=== PATIENT | male | born 1945 | race Caucasian/White ===

== ENCOUNTER 2016-10-15 15:40 | Observation (INO) ==
[2016-10-15] MEDS ORDERED: TYLENOL PO ONE (17:48)
[2016-10-15] MEDS ORDERED: MORPHINE IV ONE ×2 (17:49→19:10)
[2016-10-15] MEDS ORDERED: CATAPRES PO ONE (17:49)
[2016-10-15 17:51] LABS: MANUAL DIFF NEEDED? NO
[2016-10-15 17:54] LABS: URINE MICRO REVIEW NEEDED? NO; URINE SOURCE CLEAN CATCH
[2016-10-15 17:57] LABS: BASO% 0.9 % (0.0-0.8); EOS# 0.28 X1000 (0.0-0.7); EOS% 3.6 % (0.0-10.0); HEMATOCRIT 42.6 % (42.0-52.0); HEMOGLOBIN 14.5 g/dL (14.0-18.0); LYMPH# 1.13 X1000 (1.2-3.4); LYMPH% 14.4 % (20.5-51.1); MCH 29.1 PG (27-31); MCV 85.5 FL (81-99); MONO# 0.65 X1000 (0.11-0.59); MONO% 8.3 % (1.7-9.3); MPV 12.3 FL (7.4-10.4); NEUT% 72.8 % (42.2-75.2); PLT 309 X1000 (130-400); RBC 4.98 XMIL (4.7-6.1)
[2016-10-15 18:08] LABS: BILIRUBIN URINE NEGATIVE (NEGATIVE); BLOOD URINE NEGATIVE (NEGATIVE); COLOR YELLOW; GLUCOSE URINE NEGATIVE (NEGATIVE); LEUKOCYTES URINE NEGATIVE (NEGATIVE); NITRITE URINE NEGATIVE (NEGATIVE); PH URINE 6.5; PROTEIN URINE 100 mg/dL (NEGATIVE); SP GRAVITY URINE 1.008; TURBIDITY URINE CLEAR (CLEAR); UROBILINOGEN URINE NORMAL (NORMAL)
[2016-10-15 18:09] LABS: UR EPITHELIAL CELLS <10 /HPF (<10); URINE BACTERIA NEGATIVE /HPF; URINE RBC <10 /HPF (<10); URINE WBC <10 /HPF (<10)
[2016-10-15 18:15] LABS: INR 1.08
[2016-10-15 18:16] LABS: ALBUMIN 3.7 g/dL (3.5-5.0); CALCIUM 8.4 mg/dL (8.8-10.2); POTASSIUM 3.8 mmol/L (3.5-5.1); TOTAL BILIRUBIN 0.32 mg/dL (0.20-1.00); TOTAL PROTEIN 6.2 g/dL (6.3-8.3)
--- NOTE | 2016-10-15 18:53 | PROVIDER DOCUMENTATION ---
HPI-Headache - General Chief Complaint: Chest Pain Stated Complaint: CP,MARTIN,HIGH B/P Time Seen by Provider: 10/15/16 17:33 Source: patient Allergies/Adverse Reactions: Patient Allergies Allergy/AdvReac Type Severity Reaction Status Date / Time metformin Allergy swelling Verified 10/15/16 15:58 of tongue Home Medications: Home Medication List Medication Instructions Recorded Confirmed Last Taken Type Aspirin [Aspir 81] 81 mg PO DAILY 04/13/12 10/15/16 10/14/16 21:30 History Diltiazem C.d. [Cardizem C.d] 120 mg PO DAILY 02/15/16 10/15/16 10/15/16 09:00 History Anagrelide [Agrylin] 0.5 mg PO BID 10/15/16 10/15/16 10/15/16 09:00 History Rivaroxaban [Xarelto] 20 mg PO QHS 10/15/16 10/15/16 10/14/16 21:30 History SIMVAstatin [Zocor] 20 mg PO QHS 10/15/16 10/15/16 10/14/16 21:30 History - History of Present Illness-Headache Nature of Presenting Problem: 71 yo complains of 3 days of MARTIN - worse today . Has chronic vision changes, no acute change. Notes that BP has been increased last 2 days- 200 /110. Complains of intermittent very mild CP - none currently. no fever/chills, no n/ v. Headache Location: reports: frontal, occipital Quality of Pain: reports: dull Severity: reports: severe Onset/Duration: reports: 3 days ago Timing: reports: still present Headache Context: reports: other (increases with standing) Headache History: reports: other (hx mild occasional MARTIN) Any recent trauma/injury?: reports: none Headache severity at the maximum: severe Preceding Symptoms: denies: visual disturbances Headache Exacerbated by:: reports: movement Review of Systems - Adult - REVIEW OF SYSTEMS - ADULT Constitutional: reports: no symptoms reported Eyes: reports: other ( chronic mild blurry vision- 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 - sx are improving) Ears, Nose, Mouth & Throat: reports: no symptoms reported Cardiovascular: reports: see HPI, chest pain Respiratory: reports: shortness of breath (mild) Gastrointestinal: reports: no symptoms reported Genitourinary: reports: no symptoms reported Musculoskeletal: reports: no symptoms reported Integumentary: reports: no symptoms reported Neurological: reports: see HPI Past History - Adult - PAST MEDICAL HISTORY-ADULT Review of Records: reports: Nursing Assessment Review, Medications Reviewed Major Childhood Illnesses: reports: history unknown Cardiovascular: reports: aortic disease (abdominal aortic occlusion, with stent ), HTN, PVD Respiratory: reports: denies history Gastrointestinal: reports: denies history Endocrine/Immune: reports: other (elevated platelets) Physical Exam- Neurological - Physical Exam-Neuro Initial Vital Signs Reviewed: Yes General Appearance: appears well, alert, no apparent distress Eye Exam: bilateral eye: normal inspection, PERRL, EOMI HENMT: normocephalic/atraumatic, normal ENT inspection, TMs normal Head Injury: no evidence of injury Neck: non-tender, full range of motion, supple Respiratory: chest non-tender, lungs clear, normal breath sounds Cardiovascular: regular rate, rhythm, no edema, no gallop, no JVD, no murmur Abdominal Exam: normal bowel sounds, non tender, soft, no organomegaly Lymphatic: no adenopathy Extremity: normal range of motion, non-tender, normal inspection, no pedal edema director medical Exam: normal hearing, normal speech, PERRL Motor/Sensory: no motor deficit, no sensory deficit Neurologic: grossly normal, no motor/sensory deficits Progress - PLAN OF CARE/RESULTS Progress/Plan/Lab Results: Laboratory Tests 10/15/16 10/15/16 10/15/16 16:20 16:20 16:20 WBC 7.85 RBC 4.98 Hgb 14.5 Hct 42.6 MCV 85.5 MCH 29.1 MCHC 34.0 RDW Std Deviation 14.2 Plt Count 309 MPV 12.3 H Immature Gran % (Auto) 0.0 Neut % (Auto) 72.8 Lymph % (Auto) 14.4 L Garza % (Auto) 8.3 Eos % (Auto) 3.6 Baso % (Auto) 0.9 H Immature Gran # (Auto) 0.00 Neut # (Auto) 5.72 Lymph # (Auto) 1.13 L Garza # (Auto) 0.65 H Eos # (Auto) 0.28 Baso # (Auto) 0.07 PT INR PTT (Actin FS) Sodium 133 L Potassium 3.8 Chloride 98 Carbon Dioxide 23 L Anion Gap 12 BUN 18 Creatinine 1.2 Estimated GFR/1.73 m2 60 BUN/Creatinine Ratio 15 Glucose 151 H Calculated Osmolality 271 Calcium 8.4 L Total Bilirubin 0.32 AST 13 ALT 10 Alkaline Phosphatase 66 Troponin T [id number]-F-Nutckxwsljz Pept 1326 H Total Protein 6.2 L Albumin 3.7 Globulin 2.5 Albumin/Globulin Ratio 1.5 Urine Source Urine Color Urine Turbidity Urine pH Ur Specific Boron Urine Protein Ur Glucose (Stick) Ur Ketones (Stick) Urine Blood Urine Nitrite Urine Bilirubin Urobilinogen Dipstick Urine Leukocytes Urine WBC (Auto) Urine RBC (Auto) U Epithel Cells (Auto) Urine Bacteria (Auto) 10/15/16 10/15/16 10/15/16 16:20 16:20 17:50 WBC RBC Hgb Hct MCV MCH MCHC RDW Std Deviation Plt Count MPV Immature Gran % (Auto) Neut % (Auto) Lymph % (Auto) Garza % (Auto) Eos % (Auto) Baso % (Auto) Immature Gran # (Auto) Neut # (Auto) Lymph # (Auto) Garza # (Auto) Eos # (Auto) Baso # (Auto) PT 11.0 INR 1.08 PTT (Actin FS) 29.0 Sodium Potassium Chloride Carbon Dioxide Anion Gap BUN Creatinine Estimated GFR/1.73 m2 BUN/Creatinine Ratio Glucose Calculated Osmolality Calcium Total Bilirubin AST ALT Alkaline Phosphatase Troponin T < 0.010 Mlg-X-Hzhtxsaneey Pept Total Protein Albumin Globulin Albumin/Globulin Ratio Urine Source CLEAN CATCH Urine Color YELLOW Urine Turbidity CLEAR Urine pH 6.5 Ur Specific Boron 1.008 Urine Protein 100 A Ur Glucose (Stick) NEGATIVE Ur Ketones (Stick) NEGATIVE Urine Blood NEGATIVE Urine Nitrite NEGATIVE Urine Bilirubin NEGATIVE Urobilinogen Dipstick NORMAL Urine Leukocytes NEGATIVE Urine WBC (Auto) <10 Urine RBC (Auto) <10 U Epithel Cells (Auto) <10 Urine Bacteria (Auto) NEGATIVE Orders Category Date Time Status Cardiac Monitoring DIRECTED Care 10/15/16 17:44 Active Saline Loc NOW Care 10/15/16 17:44 Active CHEST-1 VIEW [RAD] Stat Exams 10/15/16 17:45 Taken HEAD W/O CONTRAST [CT] Stat Exams 10/15/16 17:45 Taken CBC WITH ELECTRONIC DIFF [HEME] Stat Lab 10/15/16 16:20 Completed COMPREHENSIVE METABOLIC PANEL [CHEM] Stat Lab 10/15/16 16:20 Completed PRO B-NATRIURETIC PEPTIDE Stat Lab 10/15/16 16:20 Completed PROTIME WITH INR [COAG] Stat Lab 10/15/16 16:20 Completed PTT [COAG] Stat Lab 10/15/16 16:20 Completed TROPONIN T Stat Lab 10/15/16 16:20 Completed URINALYSIS [URINALYSIS] Stat Lab 10/15/16 17:50 Completed Acetaminophen [Tylenol] Med 10/15/16 17:48 Discontinued 1,000 mg PO NOW ONE Clonidine [Catapres] Med 10/15/16 17:49 Discontinued 0.1 mg PO NOW ONE Morphine Med 10/15/16 17:49 Discontinued 4 mg IV NOW ONE EKG [EKG] Stat Ther 10/15/16 15:47 Ordered Vital Signs Temp Pulse Resp BP Pulse Ox 10/15/16 18:52 70 19 192/108 95 10/15/16 15:43 97.4 F L 78 18 174/111 98 metformin Allergy (Verified 10/15/16 15:58) swelling of tongue Aspirin [Aspir 81] 81 mg PO DAILY 04/13/12 Diltiazem C.d. [Cardizem C.d] 120 mg PO DAILY 02/15/16 Anagrelide [Agrylin] 0.5 mg PO BID 10/15/16 Rivaroxaban [Xarelto] 20 mg PO QHS 10/15/16 SIMVAstatin [Zocor] 20 mg PO QHS 10/15/16 I&O 10/14/16 10/15/16 10/16/16 06:59 06:59 06:59 Output Total 60 Balance -60 Laboratory 10/15/16 10/15/16 10/15/16 17:50 16:20 16:20 WBC RBC Hgb Hct MCV MCH MCHC RDW Std Deviation Plt Count MPV Immature Gran % (Auto) Neut % (Auto) Lymph % (Auto) Garza % (Auto) Eos % (Auto) Baso % (Auto) Immature Gran # (Auto) Neut # (Auto) Lymph # (Auto) Garza # (Auto) Eos # (Auto) Baso # (Auto) PT 11.0 INR 1.08 PTT (Actin FS) 29.0 Sodium Potassium Chloride Carbon Dioxide Anion Gap BUN Creatinine Estimated GFR/1.73 m2 BUN/Creatinine Ratio Glucose Calculated Osmolality Calcium Total Bilirubin AST ALT Alkaline Phosphatase Troponin T < 0.010 Rpx-A-Yxcedddriba Pept Total Protein Albumin Globulin Albumin/Globulin Ratio Urine Source CLEAN CATCH Urine Color YELLOW Urine Turbidity CLEAR Urine pH 6.5 Ur Specific Boron 1.008 Urine Protein 100 A Ur Glucose (Stick) NEGATIVE Ur Ketones (Stick) NEGATIVE Urine Blood NEGATIVE Urine Nitrite NEGATIVE Urine Bilirubin NEGATIVE Urobilinogen Dipstick NORMAL Urine Leukocytes NEGATIVE Urine WBC (Auto) <10 Urine RBC (Auto) <10 U Epithel Cells (Auto) <10 Urine Bacteria (Auto) NEGATIVE 10/15/16 10/15/16 10/15/16 16:20 16:20 16:20 WBC 7.85 RBC 4.98 Hgb 14.5 Hct 42.6 MCV 85.5 MCH 29.1 MCHC 34.0 RDW Std Deviation 14.2 Plt Count 309 MPV 12.3 H Immature Gran % (Auto) 0.0 Neut % (Auto) 72.8 Lymph % (Auto) 14.4 L Garza % (Auto) 8.3 Eos % (Auto) 3.6 Baso % (Auto) 0.9 H Immature Gran # (Auto) 0.00 Neut # (Auto) 5.72 Lymph # (Auto) 1.13 L Garza # (Auto) 0.65 H Eos # (Auto) 0.28 Baso # (Auto) 0.07 PT INR PTT (Actin FS) Sodium 133 L Potassium 3.8 Chloride 98 Carbon Dioxide 23 L Anion Gap 12 BUN 18 Creatinine 1.2 Estimated GFR/1.73 m2 60 BUN/Creatinine Ratio 15 Glucose 151 H Calculated Osmolality 271 Calcium 8.4 L Total Bilirubin 0.32 AST 13 ALT 10 Alkaline Phosphatase 66 Troponin T Ikp-P-Snsrumonkja Pept 1326 H Total Protein 6.2 L Albumin 3.7 Globulin 2.5 Albumin/Globulin Ratio 1.5 Urine Source Urine Color Urine Turbidity Urine pH Ur Specific Boron Urine Protein Ur Glucose (Stick) Ur Ketones (Stick) Urine Blood Urine Nitrite Urine Bilirubin Urobilinogen Dipstick Urine Leukocytes Urine WBC (Auto) Urine RBC (Auto) U Epithel Cells (Auto) Urine Bacteria (Auto) - EKG 1 Time of EKG reading by physician:: 17:00 EKG Read and Signed by:: Deonna Loomis EKG Interpretation (*Must complete 3 of following elements*): Abnormal Rate: 83 Rhythm: sr with freq PVC AK Interval: normal ST Wave: non-specific ST changes (t wave inversion laterally, changed from 07/14 ) - XRAY 1 XRAY Study: Chest (no acute changes) - CT/MRI 1 CT Study: Head (ethmoid sinusitis, chronic changes) - CONSULTS/PCP/HOSPITALIST Notification #1 *Consult/PCP/Hospitalist*: Dr Bah Time Discussed: 19:28 (EKG changes- r/o VA, Severe MARTIN- possible htn encephalopathy) Consult Disposition: Will see in ED, Admit Departure - Departure Time of Disposition Order: 19:29 DIAGNOSIS: Unstable angina, Hypertensive encephalopathy Disposition: ADMITTED INPATIENT 09 Certified Medical Emergency: Emergent Condition: Fair Referrals: Gage Gustafson MD [Primary Care Provider] -
[2016-10-15] MEDS ORDERED: LABETALOL IV ONE (19:10)
[2016-10-15] MEDS ORDERED: ZOFRAN IV PRN (22:48)
[2016-10-15] MEDS ORDERED: TYLENOL PO PRN (22:48)
--- NOTE | 2016-10-16 05:03 | HISTORY AND PHYSICAL ---
COMPLAINT: Chest pain x2 days. HISTORY OF PRESENTING ILLNESS: A 71-year-old male with a history of CVA, hypertension, and diabetes mellitus type 2 who had presented to the emergency department with a 2 day history of having chest pain. He described it as pressure-like and states that he had some shortness of breath. He was evaluated in the ER and due to his presenting symptoms, it was thought that he would need hospitalization for further management. At the time of my examination, he had denied any headache, fever, chills, nausea, vomiting, diarrhea, hemoptysis, or weight changes but complained of chest pain. PAST MEDICAL HISTORY: Includes CVA, hypertension, diabetes mellitus type 2. PAST SURGICAL HISTORY: Aortic stent and cholecystectomy. ALLERGIES: To metformin. CURRENT MEDICATIONS: As listed in the MAR. SOCIAL HISTORY: He denies any history of smoking, alcohol, or illicit drug use. FAMILY HISTORY: No history of coronary artery disease. REVIEW OF SYSTEMS: Twelve point review of systems listed as in the HPI. Other systems negative. PHYSICAL EXAMINATION: GENERAL: Cooperative, friendly male. He is resting comfortably now. VITAL SIGNS: Temperature 97.4 degrees, pulse 78, respirations 18, blood pressure 174/111. HEENT: Atraumatic, normocephalic. Extraocular movements intact. PERRLA. NECK: Supple. CHEST: Clear to auscultation. CARDIOVASCULAR: Regular rate and rhythm. ABDOMEN: Soft. Positive bowel sounds. EXTREMITIES: No edema. NEUROLOGIC: He is awake, alert, oriented x3. : No bladder distention. SKIN: Warm. LABORATORIES AND STUDIES: Sodium 133, potassium 3.8, chloride 98, CO2 is 23, BUN is 18, creatinine is 1.2, glucose is 151. WBCs 7.85, hemoglobin 14.5, hematocrit 42.6, platelets are 309,000. ASSESSMENT: A 71-year-old male with a history of hypertension and diabetes mellitus type 2 who had presented to the emergency department with a 2 day history of having chest pain. We will place the patient for observation for further evaluation and management. 1. Chest pain. 2. Hypertension. 3. Diabetes mellitus type 2. PLAN: 1. Admit the patient to the medical floor with telemetry. 2. Continue with cardiac workup. Check EKGs, serial cardiac enzymes. Have patient continue on aspirin. We will use sublingual nitroglycerin and morphine p.r.n. chest pain. 3. We will monitor blood pressure closely. Resume antihypertensive agents. 4. We will put patient on a sliding scale insulin regimen. Monitor blood glucose closely. 5. We will put patient on DVT prophylaxis with SCDs. 6. We will continue to follow and reassess.
--- NOTE | 2016-10-16 05:28 | EKG Report ---
Test Performed on : 10/15/2016 7:36:20 PM Test Reason : ekg changes Blood Pressure : / mmHG Vent. Rate : 062 BPM Atrial Rate : 062 BPM P-R Int : 194 ms QRS Dur : 110 ms QT Int : 466 ms P-R-T Axes : 031 -31 132 degrees QTc Int : 472 ms Sinus rhythm. with occasional premature ventricular complexes. Possible Left atrial enlargement Left axis deviation T wave abnormality, consider lateral ischemia Prolonged QT Abnormal ECG When compared with ECG of 15-OCT-2016 15:49, (Unconfirmed) No significant change was found Unconfirmed Result
--- NOTE | 2016-10-16 05:36 | EKG Report ---
Test Performed on : 10/15/2016 3:49:56 PM Test Reason : CP Blood Pressure : / mmHG Vent. Rate : 083 BPM Atrial Rate : 083 BPM P-R Int : 170 ms QRS Dur : 110 ms QT Int : 410 ms P-R-T Axes : 031 -28 125 degrees QTc Int : 481 ms Sinus rhythm. with frequent and consecutive premature ventricular complexes. Possible Left atrial enlargement ST & T wave abnormality, consider lateral ischemia Prolonged QT Abnormal ECG When compared with ECG of 13-JUL-2016 10:52, Criteria for Septal infarct are no longer present Unconfirmed Result
[2016-10-16] MEDS: PRILOSEC PO SCH (06:13)
--- NOTE | 2016-10-16 07:02 | Diag Imaging Result Document ---
PROCEDURE NAME: CHEST-1 VIEW - 10/15/2016 PORTABLE CHEST: COMPARISON: Compared to 07/13/2016. FINDINGS: The lungs are well expanded. Heart is borderline mildly prominent. The vessels are not distended. No pneumonia. No pleural effusions identified. IMPRESSION: Borderline mildly prominent heart, otherwise negative exam.
[2016-10-16 07:18] LABS: MANUAL DIFF NEEDED? NO
--- NOTE | 2016-10-16 07:24 | Diag Imaging Result Document ---
PROCEDURE NAME: HEAD W/O CONTRAST - 10/15/2016 CT BRAIN WITHOUT: TECHNIQUE: Dose-reduction protocol. FINDINGS: No parenchymal hemorrhage. No epidural or subdural hematoma. No subarachnoid hemorrhage. There are chronic microvascular ischemic changes. I do not identify a mass on this noncontrasted exam. There is prominent mucus in the ethmoid sinuses. IMPRESSION: 1. No hemorrhage. 2. Chronic microvascular ischemic changes. 3. Ethmoid sinusitis, primarily on the left. A preliminary report was given at 6:54 p.m.
[2016-10-16 07:27] LABS: BASO% 0.9 % (0.0-0.8); EOS# 0.22 X1000 (0.0-0.7); EOS% 2.9 % (0.0-10.0); HEMOGLOBIN 14.2 g/dL (14.0-18.0); LYMPH# 1.17 X1000 (1.2-3.4); LYMPH% 15.5 % (20.5-51.1); MCH 28.4 PG (27-31); MONO# 0.51 X1000 (0.11-0.59); MONO% 6.8 % (1.7-9.3); MPV 12.3 FL (7.4-10.4); NEUT% 73.9 % (42.2-75.2); PLT 282 X1000 (130-400)
[2016-10-16 07:36] LABS: HDL 33 mg/dL (35-55); LDL 72 mg/dL; TRIGLYCERIDES 143 mg/dL (39-160); VLDL 29 mg/dL
[2016-10-16] MEDS ORDERED: AGRYLIN PO SCH (09:00)
[2016-10-16] MEDS ORDERED: LEXISCAN ONE (12:26)
[2016-10-16] MEDS ORDERED: AMINOPHYLLINE ONE (12:42)
[2016-10-16] MEDS ORDERED: XARELTO PO SCH (17:00)
--- NOTE | 2016-10-16 19:34 | ECHO REPORT ---
ORDER DATE: 10/15/2016 MEASUREMENTS: Left ventricular end-diastolic diameter 4.4, end systolic diameter 3.3. Posterior wall thickness 2.3, septal thickness 2.3, left atrium 4.3, aortic root 4.0. SUMMARY: 1. Fair quality acoustic windows. 2. Mild aortic valve sclerosis involving trileaflet aortic valve demonstrated with normal aortic valve opening. There is mild aortic regurgitation. Mitral, tricuspid and pulmonic valves are without structural abnormality with trace mitral regurgitation, mild tricuspid regurgitation, and trace pulmonic regurgitation. The estimated systolic PA pressure by Doppler is approximately 35-40 mmHg suggesting mild pulmonary hypertension. The aortic root is mildly enlarged. 3. Normal left ventricular chamber size with severe concentric left hypertrophy is demonstrated. Estimated left ejection fraction approximately 55%. No regional wall motion abnormalities are evident. Doppler of mitral inflow suggests grade 3 left ventricular diastolic dysfunction (restrictive pattern). Left atrium is mildly enlarged. Right atrium and right ventricle normal size with grossly preserved right ventricular systolic performance. 4. No pericardial effusion. 5. Appearance of inferior vena cava suggests normal central venous pressure. CONCLUSION: 1. Mild aortic regurgitation. 2. Mild tricuspid regurgitation with mild pulmonary hypertension by Doppler. 3. Severe concentric left hypertrophy with estimated left ejection fraction 55%. 4. Doppler demonstrates grade 3 left ventricular diastolic dysfunction (restrictive pattern). 5. Mild left atrial enlargement. 6. Mild aortic root enlargement.
[2016-10-16] MEDS: CARDIZEM CD PO SCH (20:21)
[2016-10-16] MEDS: ASPIRIN EC PO SCH (20:21)
[2016-10-16] MEDS: ASPIRIN PO SCH (20:22)
--- NOTE | 2016-10-16 20:25 | Diag Imaging Result Document ---
PROCEDURE NAME: MYOCARDIAL PERF SCAN, STR/REST - 10/15/2016 LEXISCAN SESTAMIBI STUDY: SUMMARY: The patient was administered 14.7 millicuries of technetium-99m sestamibi after which resting cardiac images were obtained. Patient was subsequently stressed using Lexiscan protocol. Following the administration of Lexiscan, the heart increased from 66 beats per minute to 87 beats per minute while the blood pressure went from 185/114 to 133/85. With Lexiscan the patient denied chest discomfort. The patient did report some nausea with Lexiscan and was administered aminophylline 125 mg intravenously following the administration of radiopharmaceutical agent. Following the administration of Lexiscan, the patient was administered 44.6 millicuries of technetium-99m sestamibi after which gated stress cardiac images were obtained. Baseline ECG demonstrates sinus rhythm and left hypertrophy with repolarization abnormality. With Lexiscan baseline ST and T-wave abnormality did not change significantly. SPECT images were reconstructed in the short, horizontal, and vertical axis. Review of these images demonstrated moderately diminished activity in the inferior wall. Stress images which appears similar on resting images. Gated images demonstrate a calculated left ventricular ejection fraction 41% with symmetrical wall motion/thickening. CONCLUSIONS: 1. Adequate response to Lexiscan. 2. Clinically negative for chest pain. 3. Electrocardiographically baseline ST and T-wave abnormality did not change significantly. Following Lexiscan administration. Before Lexiscan sestamibi images demonstrate 6 moderately diminished activity in the inferior wall with corresponding symmetrical wall motion more likely due to diaphragm attenuation artifact although prior nontransmural infarction in this territory cannot entirely be excluded. There is no convincing scintigraphic evidence of inducible myocardial ischemia. Calculated left ventricular ejection fraction 41%.
[2016-10-16] MEDS: PATIENT'S OWN MED PO SCH (20:26)
--- NOTE | 2016-10-16 20:48 | PROGRESS NOTE ---
DATE: 10/16/2016 SUBJECTIVE: Today Mr. Li referred to be doing relatively fine. Still had this mild chest discomfort but otherwise no shortness of breath. OBJECTIVE: Vital signs: Blood pressure is 174/114, pulse of 90, respirations 18, temperature is 98.5 degrees. General: Mr. Li 71-year-old male. He was in bed. Did not seem to be in any distress. HEENT: Mucosa was pink and moist. Anicteric. Acyanotic. Neck: Supple. Chest: Clear. Cardiovascular: Regular rate and rhythm. Occasional extrasystole beats. Extremities: No pedal edema. GROUNDSKEEPER: Patient was alert and oriented x4. There is no focal neurological deficit. LABORATORY DATA: Has been reviewed. CBC is completely normal. Chemistry is also normal from yesterday. Pro-B was slightly elevated. Lipid panel shows HDL which is slightly low at 33 and LDL is normal at 72. Total cholesterol is normal. An EKG on presentation did show multiple frequent PVCs. Subsequent ones were completely fine. ASSESSMENT: 1. Atypical chest pain. Patient does have multiple risk factors including previous cerebrovascular accident, hypertension, diabetes so I think it will be reasonable to risk stratify his cardiac risk with a stress test which has been ordered, we still pending the results of the testing. 2. Uncontrolled hypertension. Patient is currently on diltiazem, p.r.n. labetalol. We are going to add low-dose lisinopril see if it will help with better blood pressure control. 3. Mild altered mental status likely due to hypertensive encephalopathy. This seems to have improved. Headaches and mild altered mentation likely secondary to hypertensive encephalopathy. 4. History of atrial fibrillation currently rate controlled. 5. Multiple frequent premature ventricular contractions, subsequent EKG shows that the premature ventricular contractions have been controlled. 6. In general Mr. Li seems to be stable, he did a stress test today. We are pending the official report. Will also be adding lisinopril to his medication for a better blood pressure control. Hopefully we might be able to discharge him tomorrow morning. [facility]
[2016-10-16] MEDS ORDERED: ZOCOR PO SCH (21:00)
[2016-10-17] MEDS: PATIENT'S OWN MED PO SCH ×2 (00:17→08:07)
[2016-10-17] MEDS ORDERED: LABETALOL IV PRN (00:19)
[2016-10-17] MEDS: PRILOSEC PO SCH (06:03)
[2016-10-17] MEDS: ASPIRIN EC PO SCH (08:06)
[2016-10-17] MEDS: CARDIZEM CD PO SCH (08:06)
[2016-10-17] MEDS: ASPIRIN PO SCH (08:07)
[2016-10-17 08:11] VITALS: BP 152/96
[2016-10-17] MEDS ORDERED: ATACAND PO SCH (09:00)
--- NOTE | 2016-10-17 14:27 | PROGRESS NOTE ---
DATE: 10/17/2016 Today Mr. Li refers to be doing fine. Denies any headaches and shortness of breath has significantly improved. No chest pain either. OBJECTIVE: Vital signs: Blood pressure is currently 152/96, pulse is 70, respirations 21, temperature is 97.7 degrees. Physical Exam Is: Completely unremarkable. REVIEW OF IMAGING STUDIES: A stress test was done 3 days ago which shows no convincing scintigraphic evidence of inducible myocardial ischemia. Calculated left ventricular ejection fraction was 41%. An echocardiogram which was done also on 10/15/2016 shows severe concentric left hypertrophy with estimated left ejection fraction of 55%. A Doppler demonstrate grade 3 left ventricular diastolic dysfunction. Laboratory data has been reviewed. ASSESSMENT: 1. Atypical chest pain with normal stress test. I think it is likely due to severe hypertension on presentation. 2. Hypertensive urgency. The patient did present with a blood pressure, a diastolic over 100, is currently better controlled. 3. Headaches on presentation likely due to severe hypertension improved. 4. History of atrial fibrillation, currently rate controlled. 5. Frequent PVCs. Patient needs to follow up with Cardiology. Currently on a beta dorothea. 6. Acute on chronic diastolic heart failure. Stable. 7. Severe concentric hypertrophic cardiomyopathy. 8. Hypertensive heart disease. GENERAL PLAN: Patient seems to be doing fine. He is going to be discharged today. He will be started on candesartan 60 mg p.o. daily. Continue with diltiazem, omeprazole, Xarelto for anticoagulation for his atrial fibrillation, Zocor. Patient has been advised to do a BNP in 1 week since we just started him on an ARB. He is also advised to follow up with Cardiology as outpatient for both the severe hypertrophic cardiomyopathy and also for the frequent PVCs which was found on his EKG on presentation.
--- NOTE | 2016-10-18 06:09 | DISCHARGE SUMMARY ---
ADMISSION DATE: 10/15/2016 DISCHARGE DATE: 10/17/2016 CONSULTATIONS: None. PERTINENT PROCEDURES: 1. Head CT showed no hemorrhage. Chronic microvascular ischemic changes. Ethmoid sinusitis primarily on the left. 2. Echocardiogram showed mild aortic regurgitation, mild tricuspid regurgitation with mild pulmonary hypertension, severe concentric left hypertrophy with estimated EF of 55%, grade 3 LV diastolic dysfunction, restrictive pattern, mild left atrial enlargement, mild aortic root enlargement. 3. Negative stress status. DISCHARGE DIAGNOSES: 1. Showed severe concentric left hypertrophy with an estimated EF of 55%. 2. Congestive heart failure grade 3. Patient started on candesartan, improved. 3. Atypical chest pain with a negative stress test. 4. Uncontrolled hypertension. I added lisinopril for better blood pressure control, improved. 5. Mild altered mental status likely secondary to hypertensive encephalopathy, improved with adjustments to home medications. 6. Atrial fibrillation history, rate controlled. 7. Multiple frequent PVCs. Subsequent EKG shows PVCs have been controlled. HOSPITAL COURSE: Briefly Mr. Li is a 71-year-old male with history of CVA, hypertension, diabetes mellitus type 2 who presented to the ED with a 2-day history of chest pain described as pressure like with some shortness of breath. Patient had full cardiac workup, negative cardiac enzymes, negative stress test. Echocardiogram did reveal severe concentric left hypertrophy with an estimated EF of 55%, as well as a grade 3 left ventricular diastolic dysfunction restrictive pattern. Patient was initiated on candesartan as well as added lisinopril for his hypertension. The patient's chest pain has improved. He has not had any more shortness of breath. Patient is clinically stable and ready for discharge. FOLLOW UP: He will follow up with his primary care physician, Janay Ribeiro in 1 week. Patient to return to the ED for any worsening of symptoms. DISCHARGE TIME: 30 minutes. Dictated by CHARLI Nelson for José Miguel Burnett MD
== END 2016-10-17 12:05 | disposition home or self-care (01) ==
LOC: ED 15:40 → 3N 22:56
PROVIDERS: ATTEND Internal Medicine
DX: I50.33 Acute on chronic diastolic (congestive) heart failure (principal); I11.0 Hypertensive heart disease with heart failure; R07.89 Other chest pain; I16.0 Hypertensive urgency; E11.9 Type 2 diabetes mellitus without complications; I49.3 Ventricular premature depolarization; I27.2 Other secondary pulmonary hypertension; I08.2 Rheumatic disorders of both aortic and tricuspid valves; I73.9 Peripheral vascular disease, unspecified; J32.2 Chronic ethmoidal sinusitis; I42.9 Cardiomyopathy, unspecified; I48.91 Unspecified atrial fibrillation; R41.82 Altered mental status, unspecified; R51 Headache; H53.8 Other visual disturbances; H34.9 Unspecified retinal vascular occlusion; R06.02 Shortness of breath; Z95.828 Presence of other vascular implants and grafts; Z79.01 Long term (current) use of anticoagulants; Z79.82 Long term (current) use of aspirin; Z79.02 Long term (current) use of antithrombotics/antiplatelets; Z79.899 Other long term (current) drug therapy; Z86.73 Personal history of transient ischemic attack (TIA), and cerebral infarction without residual deficits
CPT/HCPCS: 36415; 70450; 71010; 78452; 80053; 80061; 81001; 82550; 82948; 83880; 84484; 85025; 85610; 85730; 93005; 93017; 93306; 96374; 96375; 96376; A9500; J0280; J2270; J0820

== ENCOUNTER 2019-09-17 22:56 | Inpatient (IN) ==
[2019-09-17 23:29] LABS: BASO# 0.04 X1000 (0.0-0.2); BASO% 0.5 % (0.0-0.8); EOS# 0.39 X1000 (0.0-0.7); EOS% 4.8 % (0.0-10.0); HEMATOCRIT 44.7 % (42.0-52.0); HEMOGLOBIN 14.3 g/dL (14.0-18.0); IMM GRAN# 0.02 X1000 (0.0-0.04); IMM GRAN% 0.2 % (0.0-0.5); LYMPH# 1.78 X1000 (1.2-3.4); LYMPH% 21.7 % (20.5-51.1); MCH 28.5 PG (27-31); MONO# 0.72 X1000 (0.11-0.59); MONO% 8.8 % (1.7-9.3); MPV 11.8 FL (7.4-10.4); NEUT# 5.25 X1000 (1.4-6.5); PLT 315 X1000 (130-400); RBC 5.02 XMIL (4.7-6.1); RDW 14.7 % (11.5-14.5)
[2019-09-17 23:43] LABS: INR 1.99
[2019-09-17 23:44] LABS: PTT 53.5 Seconds (22.3-41.8)
--- NOTE | 2019-09-17 23:52 | PROVIDER DOCUMENTATION ---
This chart was entered by Sheron Kong Scribe, acting as scribe for Kehinde Corrales MD. HPI-Neurological Disorder - General Chief Complaint: STROKE ALERT Stated Complaint: WEAKNESS Time Seen by Provider: 09/17/19 23:23 Source: patient Allergies/Adverse Reactions: Patient Allergies Allergy/AdvReac Type Severity Reaction Status Date / Time apixaban [From Eliquis] Allergy ANAPHYLAXIS Verified 09/17/19 23:57 furosemide [From Lasix] Allergy ITCHING Verified 09/18/19 00:02 metformin Allergy swelling Verified 09/17/19 23:57 of tongue morphine Allergy Unknown Verified 09/17/19 23:57 Home Medications: Home Medication List Medication Instructions Recorded Confirmed Last Taken Type Aspirin [Aspir 81] 81 mg PO DAILY 04/13/12 09/18/19 11/14/18 History Anagrelide [Agrylin] 1 mg PO BID 10/15/16 09/18/19 11/14/18 History SIMVAstatin [Zocor] 20 mg PO QHS 10/15/16 09/18/19 11/14/18 History Carvedilol [Coreg] 6.25 mg PO BID 09/17/19 09/17/19 Unknown History Rivaroxaban [Xarelto] 20 mg PO QHS 09/17/19 09/18/19 Unknown History Torsemide 10 mg PO DAILY 09/17/19 09/17/19 Unknown History Valsartan 80 mg PO DAILY 09/17/19 09/17/19 Unknown History - History of Present Illness-Neuro Nature of Presenting Problem: pt is a 74 yr old male presenting via EMS with right facial droop, per onset between 2129 and 2144 while they were talking. reports pt complained of double vision earlier today that resolved with rest. pt denies any complaints Severity: reports: moderate Onset/Duration: reports: abrupt (2144) Timing: reports: still present Context: reports: facial droop. denies: fever, impaired speech, seizure activity Approximate time patient was last seen normal?: 21:30 (approx [id number]) Character of Altered Mental Status: denies: disoriented, seizure activity, decreased responsiveness Any recent trauma/injury?: reports: none Character of Deficits: reports: new weakness (right face) New weakness or altered sensation location:: reports: right facial Cognitive Baseline: alert, oriented x3 Gait Baseline: walks without assistance Associated Symptoms: reports: paresthesia. denies: dizziness, numbness in legs/feet, slurred speech Similar Symptoms Previously?: No Recently seen or treated by another doctor?: No Review of Systems - Adult - REVIEW OF SYSTEMS - ADULT ROS:: ROS per family Constitutional: reports: no symptoms reported Eyes: reports: double vision Ears, Nose, Mouth & Throat: reports: no symptoms reported Cardiovascular: denies: chest pain, palpitations, syncope Respiratory: denies: cough, dyspnea on exertion, shortness of breath Gastrointestinal: reports: no symptoms reported Genitourinary: reports: no symptoms reported Musculoskeletal: reports: no symptoms reported Integumentary: reports: no symptoms reported Neurological: reports: other (right facial droop). denies: dizziness/vertigo, headache/migraines Psychiatric: reports: no symptoms reported Endocrine: reports: no symptoms reported Hematologic/Lymphatic: reports: no symptoms reported Allergic/Immunologic: reports: no symptoms reported All Other Systems: Reviewed and Negative Past History - Adult - PAST MEDICAL HISTORY-ADULT Review of Records: reports: Old Records Reviewed, Nursing Assessment Review, Medications Reviewed, Social history reviewed & non-contributory. Major Childhood Illnesses: reports: history unknown Cardiovascular: reports: aortic disease (abdominal aortic occlusion, with stent ), HTN, PVD Respiratory: reports: denies history Gastrointestinal: reports: denies history Obstetrical/Gynecological: reports: denies history Genitourinary: reports: denies history Musculoskeletal: reports: denies history Neurological: reports: denies history Endocrine/Immune: reports: other (elevated platelets) Other Conditions: reports: denies history - IMMUNIZATION STATUS Childhood Immunizations: See Nurse Assessment Flu Vaccine: See Nurse Assessment - FAMILY HISTORY Family History: reviewed, not pertinent - SOCIAL HISTORY Smoking: chew Substance Use: alcohol Alcohol Use Frequency: occasionally Living Situation: family Physical Exam- Neurological - Physical Exam-Neuro Initial Vital Signs Reviewed: Yes General Appearance: alert, no apparent distress, obese Eye Exam: bilateral eye: normal inspection, PERRL HENMT: normocephalic/atraumatic, moist mucous membranes Head Injury: no evidence of injury Neck: non-tender, full range of motion, supple, normal inspection Respiratory: chest non-tender, lungs clear, normal breath sounds, no respiratory distress, no accessory muscle use Cardiovascular: normal peripheral pulses, regular rate, rhythm, no edema Abdominal Exam: normal bowel sounds, non tender, soft Lymphatic: no adenopathy Extremity: normal range of motion, non-tender, normal inspection hazmat tanker driver Exam: normal hearing, normal speech, facial droop (right) Motor/Sensory: no motor deficit, no sensory deficit Neurologic: facial droop (right) Integumentary: normal color, normal turgor, warm/dry Psych/Mental Status: normal mood/affect, normal thought content, normal thought process, oriented x 3 - Glascow Coma Scale Best Eye Response: (3) open to voice Best Verbal Response: (5) oriented Best Motor Response: (6) obeys commands Total Glascow Score: 15 Progress - PLAN OF CARE/RESULTS Progress/Plan/Lab Results: Vital Signs - 8 hr 09/17/19 23:06 Temperature 97.8 F Pulse Rate 71 Respiratory Rate 13 Blood Pressure 155/88 O2 Sat by Pulse Oximetry 94 L Laboratory Results - last 24 hr 09/17/19 09/17/19 09/17/19 23:00 23:00 23:00 WBC 8.20 RBC 5.02 Hgb 14.3 Hct 44.7 MCV 89.0 MCH 28.5 MCHC 32.0 L RDW Std Deviation 14.7 H Plt Count 315 MPV 11.8 H Immature Gran % (Auto) 0.2 Neut % (Auto) 64.0 Lymph % (Auto) 21.7 [place] % (Auto) 8.8 Eos % (Auto) 4.8 Baso % (Auto) 0.5 Immature Gran # (Auto) 0.02 Neut # (Auto) 5.25 Lymph # (Auto) 1.78 [place] # (Auto) 0.72 H Eos # (Auto) 0.39 Baso # (Auto) 0.04 PT 23.0 H INR 1.99 PTT (Actin FS) 53.5 H Sodium 141 Potassium 4.2 Chloride 103 Carbon Dioxide 22 L Anion Gap 16 BUN 23 H Creatinine 1.6 H Estimated GFR/1.73 m2 42 BUN/Creatinine Ratio 14 Glucose 110 H Calculated Osmolality 286 Calcium 9.1 Total Bilirubin 0.38 AST 17 ALT 19 Alkaline Phosphatase 85 Total Protein 6.6 Albumin 4.0 Globulin 2.6 Albumin/Globulin Ratio 1.5 Orders Category Date Time Status Cardiac Monitoring DIRECTED Care 09/17/19 23:02 Active Finger Stick Blood Sugar (ED) DIRECTED Care 09/17/19 23:02 Active Oxygen Therapy- ED Nursing DIRECTED Care 09/17/19 23:02 Active Saline Loc NOW Care 09/17/19 23:02 Active CHEST-PORTABLE [RAD] Stat Exams 09/17/19 23:[address] HEAD W/O CONTRAST [CT] Stat Exams 09/17/19 23:02 Taken CBC WITH ELECTRONIC DIFF [HEME] Stat Lab 09/17/19 23:00 Completed COMPREHENSIVE METABOLIC PANEL [CHEM] Stat Lab 09/17/19 23:00 Completed PROTIME WITH INR [COAG] Stat Lab 09/17/19 23:00 Completed PTT [COAG] Stat Lab 09/17/19 23:00 Completed EKG [EKG] Stat Ther 09/17/19 23:02 Ordered Result Diagrams: 09/17/19 23:00 09/17/19 23:00 - REASSESSMENT Reassessment #1 Time Reassessed: 23:45 Status: improving Reassessment Comment: facial drooping improved - XRAY 1 XRAY Study: Chest Impression: See EMR Report - CT/MRI 1 CT Study: Head Impression: Abnormal (chronic changes without acute intracranial pathology), See EMR Report - CONSULTS/PCP/HOSPITALIST Notification #1 *Consult/PCP/Hospitalist*: Dr Huang Time Discussed: 00:10 Reason/Comments: discussed plan of care for pt admit Consult Disposition: Admit Departure - Departure Date of Disposition Decision: 09/18/19 Time of Disposition Decision: 00:12 DIAGNOSIS: Acute CVA (cerebrovascular accident) Disposition: ADMITTED INPATIENT 09 Certified Medical Emergency: Emergent Condition: Stable - Critical Care Note This patient required my direct & personal management of CC.: No Attestation - Physician/ LIBERTAD Attestation Patient care was provided by Advanced Practice Provider:: No The physician spent face to face time with patient:: Yes Advanced Practice Provider documentation review:: Supervising physician onsite and consulted in the evaluation and care of this patient. The physician did have a face to face encounter with the patient. - NIH Stroke Scale Level of Consciousness: 0-Alert LOC Questions (ask month and age): 0-Answers Both Correctly LOC Commands (ask to open & close eyes;make a fist, let go): 0-Obeys Both Correctly Best Gaze (horizontal eye movement): 0-Normal Visual (use finger movement, counting or visual threat): 0-No Visual Loss Facial Palsy (show teeth or raise eyebrows & close eyes tght: 1-Minor Paralysis Motor Function-left arm: 0-Normal Motor Function-right arm: 0-Normal Motor Function-left le-Normal Motor Function-right le-Normal Limb Ataxia([id number], or heel to chapa): 0-No Ataxia Sensory(pin prick to face,arms,trunk,legs-compare side/side): 0-No Ataxia Best Language(name item/read sentence.Ex-Down to Earth): 0-No Aphasia Dysarthria(Pt read words or say words Ex.Mama,Tip-Top,Thanks: 0-Normal Articulation Extinction and Inattention: 0-Normal NIH Total Score: 1 This chart was documented by the indicated scribe, (Sheron Kong, Scribe) and accurately reflects the services I performed and decisions made by me, Kehinde Corrales MD, as attested by the provider's signature.
[2019-09-17 23:54] LABS: ALB/GLOB RATIO 1.5; CALCIUM 9.1 mg/dL (8.8-10.2); CREATININE 1.6 mg/dL (0.7-1.2); POTASSIUM 4.2 mmol/L (3.5-5.1); TOTAL BILIRUBIN 0.38 mg/dL (0.20-1.00); TOTAL PROTEIN 6.6 g/dL (6.3-8.3)
[2019-09-18] MEDS ORDERED: NS 1,000 ML IV ONE (01:06)
[2019-09-18] MEDS ORDERED: ZOFRAN IV PRN (04:18)
[2019-09-18] MEDS ORDERED: TYLENOL PO PRN (04:18)
--- NOTE | 2019-09-18 04:56 | HISTORY AND PHYSICAL ---
CHIEF COMPLAINT: Stroke-like symptoms. HPI: This is a 74-year-old male who came into the emergency room with right-sided facial droop. Onset was around 2129. They were taking, he started having slurring of speech, also had some double vision earlier today that resolved with rest. He denies any complaint at this time. He still is having noticeable, but, from what I understand, right- sided facial droop. He is no longer having slurred speech. He does not have any upper or lower extremity weakness. His past medical history consists of an abdominal aortic occlusion with stenting, hypertension, peripheral vascular disease, A-fib with chronic anticoagulation, and elevated platelets for which he is on Agrylin, and sees Dr. Frias. His laboratory data was obtained which was grossly normal or at baseline for the patient. Chest x-ray and CT were completed in the emergency room. Chest x- ray was grossly normal. CT showed chronic changes without acute intracranial pathology. He will be admitted to the medical floor for further evaluation and treatment. PREVIOUS SURGICAL HISTORY: Aortic stent placement, cholecystectomy. FAMILY HISTORY: Positive for coronary artery disease. SOCIAL HISTORY: No alcohol, tobacco, or illicit drugs. ALLERGIES: MORPHINE, METFORMIN CAUSING SWELLING OF THE TONGUE, LASIX CAUSING ITCHING, AND ELIQUIS CAUSING ANAPHYLAXIS. HOME MEDICATIONS: 1. Agrylin 1 mg p.o. b.i.d. 2. Aspirin 81 mg p.o. daily. 3. Carvedilol 6.25 mg p.o. b.i.d. 4. Xarelto 20 mg p.o. at bedtime. 5. Simvastatin 20 mg p.o. at bedtime. 6. Torsemide 10 mg p.o. daily. 7. Valsartan 80 mg p.o. daily. REVIEW OF SYSTEMS: A 14 point review of systems was conducted with the patient. He denies complaint. Pertinent positives listed above in the HPI. All other systems reviewed and found to be negative. PHYSICAL EXAMINATION: VITAL SIGNS: Temperature 97.8, pulse 71, respirations 13, blood pressure 155/88, oxygen saturation 94% on room air. GENERAL: Pleasant 74-year-old male lying on the ER stretcher. He is alert and oriented x3. He is in no acute distress. Right-sided facial droop is noted. HEENT: Head is atraumatic, normocephalic. Pupils equal, round, reactive to light. Extraocular eye movements intact. Sclera is anicteric. Conjunctiva is pink. Oral mucosa is dry. Right-sided facial droop is noted. NECK: Supple. No JVD. no thyromegaly. Trachea is midline. No cervical lymphadenopathy. CARDIAC: S1, S2 appreciated. Irregularly irregular. No murmurs, gallops or rubs. LUNGS: Clear to auscultation bilaterally. No rhonchi, wheezes or rales. Symmetric rise and fall of respirations. ABDOMEN: Protuberant, soft, nondistended, nontender. Bowel sounds present all 4 quadrants, normoactive. No pulsatile masses or organomegaly. EXTREMITIES: No clubbing, cyanosis or edema. 1+ pedal pulses bilaterally. GENITOURINARY: No bladder distention. Patient voids, otherwise deferred. NEUROLOGICAL: Alert and oriented x3. Right-sided facial droop. Cranial nerves 2-12 otherwise grossly intact. MUSCULOSKELETAL: 5/5 upper and lower extremity strength. Range of motion appears to be within normal limits. DIAGNOSTIC DATA: CT shows chronic microvascular changes. No acute intracranial process. Chest x- ray normal chest x-ray. LABORATORY DATA: CBC within normal limits. PT 23, INR 1.99, PTT 53.5. Sodium 141, potassium 4.2, chloride 102, carbon dioxide 22, BUN 23, creatinine 1.6, glucose 110. ASSESSMENT: 1. Probable cerebrovascular accident. 2. Hypertension. 3. Hyperlipidemia. 4. Atrial fibrillation on chronic anticoagulation. PLAN: Admit patient to the medical floor, check direct lipid profile, increase his simvastatin to 40 mg at bedtime. Continue Agrylin, aspirin, and Xarelto. Consult Dr. Frias. He sees the patient for elevated platelets. They are within normal limits at this time. Order MRI, echo and carotid ultrasound for tomorrow morning. Neuro checks. Further recommendations based on patient's clinical course. Dictated by CHARLI Castro for Tha Huang MD cc: CHARLI Castro MD Independent exam and assessment performed by me at bedside with SALES LEAD. Discussed the above plan of care with SALES LEAD. Concerned that if it turns out that pt has CVA, our choices for secondary prophylaxis will be very limited. MTDD
--- NOTE | 2019-09-18 06:23 | Diag Imaging Result Doc PS360 ---
CT HEAD W/O CONTRAST - 09/17/2019 INDICATION: stroke like symptoms COMPARISON: 10/15/2016 FINDINGS: There is grossly stable moderately advanced cerebral white matter chronic microvascular ischemia. The ventricles and sulci are normal in size and contour. No intracranial mass or hemorrhage. The skull is intact. There are some minimal scattered sinusitis. IMPRESSION: No acute process. This exam was performed using automated exposure control, adjustment of mA or kV according to patient size, and/or use of iterative reconstruction technique Electronically signed by Irving Cardona 09/18/2019 6:21 AM
--- NOTE | 2019-09-18 07:23 | Diag Imaging Result Doc PS360 ---
EXAM: CHEST-PORTABLE HISTORY: stroke like symptoms TECHNIQUE: Single view COMPARISON: 07/31/2019 FINDINGS: The lungs are well expanded. The heart is borderline mildly prominent. The vessels are not distended. There are no infiltrates. No effusion identified. IMPRESSION: Mildly prominent heart Electronically signed by Raffaele Herr 09/18/2019 7:20 AM
--- NOTE | 2019-09-18 07:53 | EKG Report ---
Test Performed on : 09/18/2019 07:46:08 AM Test Reason : poss. stroke Blood Pressure : / mmHG Vent. Rate : 066 BPM Atrial Rate : 066 BPM P-R Int : 198 ms QRS Dur : 112 ms QT Int : 466 ms P-R-T Axes : 035 -36 096 degrees QTc Int : 488 ms Normal sinus rhythm. Left axis deviation ST & T wave abnormality, consider lateral ischemia Prolonged QT Abnormal ECG When compared with ECG of 13-MAY-2019 17:07, No significant change was found Unconfirmed Result
[2019-09-18] MEDS ORDERED: DIOVAN PO SCH (09:00)
[2019-09-18] MEDS: COREG PO SCH ×2 (10:32→21:15)
[2019-09-18] MEDS: ASPIRIN EC PO SCH (10:33)
[2019-09-18] MEDS: AGRYLIN PO SCH ×2 (10:44→21:16)
[2019-09-18] MEDS: DEMADEX PO SCH (10:44)
--- NOTE | 2019-09-18 10:52 | Diag Imaging Result Doc PS360 ---
MRI BRAIN W/WO CONTRAST - 09/18/2019 INDICATION: stroke COMPARISON: Head CT 09/17/2019 FINDINGS: There are a couple of tiny areas of restricted diffusion in the left thalamus. No intracranial mass or hemorrhage. No abnormal contrast enhancement. There is some mild sinusitis on the left side. There is moderately extensive periventricular cerebral white matter chronic vascular ischemia. IMPRESSION: 1. Recent lacunar stroke in the left thalamus. 2. Chronic microvascular ischemia. 3. Mild sinusitis. Electronically signed by Irving Cardona 09/18/2019 10:50 AM
[2019-09-18] MEDS ORDERED: LABETALOL IV PRN (11:10)
[2019-09-18] MEDS: NS 1,000 ML IV SCH ×3 (11:18→21:18)
--- NOTE | 2019-09-18 13:39 | ECHO REPORT ---
ORDER DATE: 09/18/2019 MEASUREMENTS: Septal thickness 1.2, left ventricular internal diameter in diastole 4.4, posterior wall thickness 1.2, aortic root 4.5, left atrium 4.0. SUMMARY: 1. Technically difficult study due to limited acoustic window quality. 2. Mild aortic valve sclerosis demonstrated with mildly reduced aortic valve leaflet mobility. Valve opening appears to be adequate. Peak gradient across the aortic valve is 10 to 15 mmHg. There is very mild aortic regurgitation. Mild mitral annular calcification is demonstrated. There is trace mitral regurgitation. Tricuspid valve was without evidence of structural abnormality with mild tricuspid regurgitation. The estimated systolic PA pressure by Doppler is 40 to 45 mmHg, suggesting mild pulmonary hypertension. Aortic root is mildly enlarged. 3. Normal left ventricular chamber size with mild concentric left ventricular hypertrophy demonstrated. The estimated left ventricular ejection fraction appears to be at least 60%. There were no regional wall abnormalities evident. Doppler suggests grade 1 left ventricular diastolic dysfunction. The left atrium is mildly enlarged. The right atrium and right ventricle are normal in size with normal right ventricular systolic function. 4. No pericardial effusion. 5. Appearance of inferior vena cava suggests normal central venous pressure. CONCLUSIONS: 1. Technically difficult study. 2. Aortic valve sclerosis without significant stenosis with very mild aortic regurgitation. 3. Mild aortic root enlargement. 4. Mild mitral annular calcification with trace mitral regurgitation. 5. Mild tricuspid regurgitation with mild pulmonary hypertension by Doppler. 6. Mild concentric left ventricular hypertrophy with estimated left ventricular ejection fraction of at least 60%. 7. Grade 1 left ventricular diastolic dysfunction is suggested. 8. Mild left atrial enlargement. cc: MD Tulio Mireles CRNP
--- NOTE | 2019-09-18 14:23 | NEUROLOGY CONSULTATION ---
DATE: 09/18/2019 HISTORY OF PRESENT ILLNESS: Mr. Li is 74 years old and there is evidence of acute stroke. History from the patient is he was seated, feeling well last evening and attempted to speak to his , and found himself unable to be understood. He recognized the problem. He knew what he wanted to say, but had trouble saying the words. He did not have any trouble understanding what was said to him and he reports full memory of this event. Someone noticed right facial droop. He does not recall having headache. There was no altered awareness. 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 When he covered the right eye, he saw double images, 1 above the other, inconsistently. All of this deficit improved and seems completely recovered today. He reports no previous history of stroke, other neurologic event, serious head injury in adulthood. He did have head injury in childhood. PAST HISTORY: Remarkable for thrombocytosis, hypertension, peripheral vascular disease, atrial fibrillation. He has made some recent changes to his anagrelide dose schedule. He reports recent platelet counts have been a little bit lower than baseline. Platelet count on admission here was 315,000. LAB: Showed PT 23.0 seconds, and INR 1.99, and he takes Xarelto 20 mg daily. Triglycerides elevated 269, total cholesterol 145, HDL 31, VLDL 54, LDL 78. OTHER MEDICINES: Daily aspirin, carvedilol, simvastatin, torsemide, valsartan. PHYSICAL EXAMINATION: Vital Signs: He has been afebrile here. Heart rate has ranged 60s to 70s. Systolic blood pressure was initially 150s, recently 170s-190s. Brain MRI shows apparent recent left thalamic lacunar infarction. On my view, there is restricted diffusion across only a centimeter or so in coronal plain, but this extends across several slices. There is also evidence of typical chronic white matter micro ischemic change bilaterally. EXAM: On exam now, Mr. Li is awake, alert, attentive, oriented, appropriate. Speech is not dysarthric. Language function is intact on careful bedside testing. Recent and remote memory are good. Head and neck are unremarkable. He has full visual xiong tested by confrontational finger counting monocularly and binocularly. I could not find a definite field cut with the left eye. He did not report diplopia. His gaze is conjugate in all directions. The right nasolabial fold is less prominent than the left. Facial motility is good bilaterally. Facial sensation is intact to pinprick and light touch testing bilaterally. Gag is intact. Tongue is midline. Hearing is fair. Shoulder shrug is equal. Strength is normal in the arms and legs tested while seated on the edge of the bed. He did well on [id number] and [id number] testing bilaterally. He reports good pinprick appreciation over the limbs. I did not test his gait. IMPRESSION: Imaging evidence of acute thalamic lacunar infarction. His deficit included speech difficulty which may have been primarily dysarthria, but could have been dysphasia. The only current finding is partial right facial droop, which may or may not be related to this lesion (he thinks this may be old). He has risk factors including age, hypertension, atrial fibrillation. His platelet count appears well controlled and seems unlikely to be a significant factor at these levels. I would continue his statin, aspirin and other medicines. Since this is lacunar infarction and clinical course has been near complete resolution of deficit, I do not think we have to be aggressive with permissive hypertension, and we can treat his blood pressure as needed. I do not have any urgent suggestion. I encouraged him to be aggressive with management of his risk factors and to keep followup with his primary physician after discharge. Thanks for asking Neurology to see Mr. Li. cc: MD ARLEN Toscano III
--- NOTE | 2019-09-18 17:11 | HEMO/ONC CONSULTATION ---
DATE: 09/18/2019 REASON FOR CONSULTATION: He is a known patient of ours for the treatment of essential thrombocytosis. HISTORY OF PRESENT ILLNESS: This is a 74-year-old male who presented to the emergency room early this morning with right-sided facial droop, slurred speech, and double vision. He said these symptoms started around 21:30 the prior evening. At the time of his arrival to the ER, he continued to have right facial droop but slurred speech had resolved. He did not have any upper or lower extremity weakness. The patient was admitted to the floor for further evaluation. We see the patient in the clinic for the treatment of essential thrombocytosis, JAK2 positive. The patient is on anagrelide with alternating doses of 0.5 mg and 1 mg every other day. The patient has been compliant with his medications. The patient's last lab draw was on Sunday, 09/15 and platelets were 283, within normal limits. The patient had no complaints and was feeling rather healthy. The patient is also on Xarelto for atrial fibrillation. Upon meeting the patient in the ER this morning, his facial droop had resolved. He had no further symptoms. His platelet count was 315,000. He had no other significant lab abnormalities. PAST MEDICAL HISTORY: Atrial fibrillation, high blood pressure. PAST SURGICAL HISTORY: Aortic stent placement, cholecystectomy. SOCIAL HISTORY: Denies alcohol, tobacco, or illicit drug use. ALLERGIES: Morphine, metformin, Lasix, and Eliquis. HOME MEDICATIONS: Anagrelide, baby aspirin, carvedilol, Xarelto, simvastatin, torsemide, valsartan. REVIEW OF SYSTEMS: The patient had no complaints this morning. All other review of systems found to be negative. VITAL SIGNS: Temperature 97.5 degrees, pulse rate 75, respiratory rate 16, blood pressure 113/79, 97% on room air. He is in 0/10 pain. PHYSICAL EXAMINATION: General: The patient is in no acute distress, lying on the ER stretcher. HEENT: Sclera is anicteric. PERRLA. Oral mucosa is normal. Cardiovascular: Normal S1, S2. Irregular rhythm. No murmurs noted. Respiratory: Lung sounds are clear to auscultation. Normal respiratory effort. Abdomen: Protuberant, soft, nondistended, nontender. Bowel sounds are present. Extremities: No lower extremity edema noted. Neurological: Alert and oriented x3. No deficits noted. Musculoskeletal: Normal upper and lower extremity strength noted. LABORATORY: WBC 8.2, hemoglobin 14.3, hematocrit 44.7, platelet count 315,000. PT 23, INR 1.99, PTT 53.5. Creatinine 1.6. RADIOLOGY: Chest x-ray: No acute pathology. Head CT: No acute process. Brain MRI: 1. Recent lacunar stroke in the left thalamus. 2. Chronic microvascular ischemia. 3. Mild sinusitis. Echocardiogram: Ejection fraction 60%. ASSESSMENT AND PLAN: 1. Probable cerebrovascular accident versus transient ischemic attack. The patient's brain MRI shows recent lacunar stroke in the left thalamus. The patient's symptoms have currently resolved. Continue management per Hospitalist and Neurology. 2. Essential thrombocytosis. Continue the patient's anagrelide 0.5 mg alternating with 1 mg daily. We will continue to follow and monitor his labs. 3. Atrial fibrillation, on Xarelto. Continue with Cardiology and Hospitalist. 4. Deep vein thrombosis prophylaxis. The patient is being anticoagulated with Xarelto. Continue same. Dictated by CHARLI Sheets for Robert Frias MD Patient seen and examined. Admitted with CVA. We see him for essential thrombocytosis which is well controlled with anagrelide. Has A Fib and is Xarelto. Now ASA has been added. Continue current management. Robert Frias MD cc: Robert Frias MD [facility]
--- NOTE | 2019-09-18 18:23 | PROGRESS NOTE ---
DATE: 09/18/2019 SUBJECTIVE: Patient has no major complaints. OBJECTIVE: Vital signs: Blood pressure 113/79, heart rate of 75, respiratory rate of 16, temperature 97.5 degrees. Cardiovascular: Regular rate and rhythm. Pulmonary: Bilateral breath sounds. Clear to auscultation. GI: Soft, nontender, nondistended. Bowel sounds are positive. LABORATORY DATA: I do not have any new white count. PROBLEM LIST: 1. Acute ischemic cerebrovascular accident. He is really on maximum therapy at this point, so I am really not sure what else to add. Neurology has been consulted. We will continue to follow. I have switched him to Lipitor just to improve his cholesterol coverage and we will follow. 2. Hypertension. Allow permissive hypertension. Gentle hydration. 3. I do not know if it is acute on chronic renal failure but he does have some renal insufficiency. We will repeat his labs tomorrow after hydration and monitor. Avoid nephrotoxic drugs. cc: Brian Vargas MD
[2019-09-18] MEDS ORDERED: ZOCOR PO SCH ×2 (21:00)
[2019-09-18] MEDS ORDERED: XARELTO PO SCH (21:00)
[2019-09-18] MEDS ORDERED: LIPITOR PO SCH (21:00)
[2019-09-19] MEDS: NS 1,000 ML IV SCH (03:21)
[2019-09-19 06:55] LABS: BASO# 0.04 X1000 (0.0-0.2); BASO% 0.5 % (0.0-0.8); EOS# 0.37 X1000 (0.0-0.7); EOS% 4.3 % (0.0-10.0); HEMATOCRIT 40.7 % (42.0-52.0); HEMOGLOBIN 12.9 g/dL (14.0-18.0); IMM GRAN# 0.02 X1000 (0.0-0.04); IMM GRAN% 0.2 % (0.0-0.5); LYMPH# 1.24 X1000 (1.2-3.4); LYMPH% 14.5 % (20.5-51.1); MCH 28.4 PG (27-31); MCHC 31.7 g/dL (33-37); MCV 89.6 FL (81-99); MONO# 0.59 X1000 (0.11-0.59); MONO% 6.9 % (1.7-9.3); MPV 11.8 FL (7.4-10.4); NEUT# 6.32 X1000 (1.4-6.5); NEUT% 73.6 % (42.2-75.2); PLT 277 X1000 (130-400); RBC 4.54 XMIL (4.7-6.1); RDW 14.5 % (11.5-14.5); WBC 8.58 X1000 (4.8-10.8)
[2019-09-19 07:07] LABS: CALCIUM 8.1 mg/dL (8.8-10.2); CREATININE 1.5 mg/dL (0.7-1.2); POTASSIUM 4.1 mmol/L (3.5-5.1)
[2019-09-19] MEDS: COREG PO SCH (08:20)
[2019-09-19] MEDS: AGRYLIN PO SCH (08:21)
[2019-09-19] MEDS: DEMADEX PO SCH (08:21)
[2019-09-19] MEDS: ASPIRIN EC PO SCH (08:21)
--- NOTE | 2019-09-19 13:45 | Diag Imaging Result Doc PS360 ---
EXAM: CT ANGIOGRAM HEAD 09/19/2019 HISTORY: cva TECHNIQUE: This exam was performed using automated exposure control, adjustment of mA or kV according to patient size, and/or use of iterative reconstruction technique. COMMENT: There is some dilatation of the internal carotid artery on the right in the siphon region adjacent to the posterior clinoid to almost 7 mm. More proximally this measures less than 5 mm. There are calcifications in the internal carotid arteries bilaterally. Both middle cerebral arteries are patent proximally. The anterior cerebral arteries are patent. The visualized portions of both vertebral arteries are patent. There is a questionable stenosis of the basilar artery around image 55. Some of this may be artifactual due to beam hardening however slight dilatation of the basilar artery proximal to this to an AP diameter of over 4 mm is present. The MRI study of 09/18/2019 also demonstrates a severe stenosis of the basilar artery (see image 78 of the contrast-enhanced T1 axial series). IMPRESSION: 1. Ectasia of the intracranial right internal carotid artery. 2. Severe stenosis of the basilar artery. The findings were discussed with Cornelius Varags MD at 09/19/2019 1:43 PM. Electronically signed by Rolly Ibrahim 09/19/2019 1:43 PM
--- NOTE | 2019-09-19 15:35 | Diag Imaging Result Doc PS360 ---
EXAM: MRA BRAIN W/O CONTRAST 09/19/2019 HISTORY: vertebral artery stenosis TECHNIQUE: 3-D [id number] COMMENT: There is high-grade stenosis of the basilar artery. There is apparent stenosis of the proximal left middle cerebral artery and of the proximal right A1 segment of the anterior cerebral artery. The proximal right posterior cerebral artery appears stenotic and there is possible stenosis on the left as well with poststenotic dilatation. IMPRESSION: Atherosclerotic changes particularly in the basilar artery. Electronically signed by Rolly Ibrahim 09/19/2019 3:33 PM
[2019-09-19 15:37] VITALS: BP 183/87
[2019-09-19] MEDS ORDERED: NS 500 ML IV ONE (15:58)
[2019-09-19] MEDS ORDERED: PLAVIX PO ONE (16:26)
--- NOTE | 2019-09-19 16:43 | DISCHARGE SUMMARY ---
ADMISSION DATE: 09/18/2019 DISCHARGE DATE: 09/19/2019 HOSPITAL COURSE: He has had a CVA. His brain MRI shows an acute left thalamic lacunar stroke. The patient was already on aspirin and Xarelto. He was monitored closely. In any case, he came in with confusion, right-sided facial weakness which pretty much resolved spontaneously. However, the MRI did confirm a stroke in the left thalamic area. Echo was unremarkable. There was no evidence of atrial thrombus. Neurology was consulted, which had dysarthria, dysphagia, right facial droop. They just recommended statin and aspirin. I had further discussion with them with Dr. Roper after we got his head CT results which showed severe stenosis of the basilar artery. He did not recommend any other testing from that standpoint. Again, there was a high-grade stenosis of the basilar artery and apparent stenosis of the proximal left middle cerebral artery. Posterior cerebral is stenotic. In any case, the patient was asymptomatic. Dr. Roper felt that he could go home. He did have a mild bump in his creatinine, but I think he has some chronic renal insufficiency because Dr. Gustafson is following him. He was due for a test before and his creatinine has been 1.82 before so this is actually fairly close to baseline. He did get IV contrast though. DISCHARGE MEDICATIONS: Xarelto 20, Zocor 20, Agrylin 1 b.i.d., Coreg 6.25 b.i.d., torsemide 20 daily, valsartan 80 daily, and he will be now on Plavix 75 daily. FOLLOW-UP INSTRUCTIONS: We encouraged him to follow up with Neurology, Dr. Frias next week; Dr. Gustafson his PCP. Return for any acute ischemic changes. TIME SPENT: 32 minute discharge. cc: Brian Vargas MD
--- NOTE | 2019-09-19 19:40 | NEUROLOGY PROGRESS NOTE ---
DATE: 09/19/2019 SUBJECTIVE: Mr. Li reports no new problems and specifically no further episodes of speech or language trouble. Hematology report is noted. OBJECTIVE: On exam, right nasolabial fold continues less prominent than the left, stable since exam yesterday. I do not find any new neurologic deficit. Systolic blood pressures have been 110s-160s. IMPRESSION: Small subcortical infarction. In light of the small area of infarction and clinical course, I think we can treat blood pressure as needed. I would continue atorvastatin and aspirin, Xarelto, anagrelide. CT angiogram has been ordered. Creatinine has improved from 1.6 on admission to 1.5 today. Thanks for asking Neurology to see Mr. Li. cc: MD ARLEN Toscano III
--- NOTE | 2019-09-22 17:36 | Carotid Study ---
DATE: 09/18/2019 REFERRING PHYSICIAN: Sylvia. READING PHYSICIAN: Dr. Koch. LIVE AMMUNITION INSPECTOR: Connie. INDICATION: TIA. COMPARISON STUDY: 07/27/2016 FINDINGS: There is calcific plaque at the takeoff of the right internal carotid artery and a smaller but similar lesion at the takeoff of left internal carotid artery. Both lesions produce turbulence and elevated velocities consistent with moderate stenosis. The right vertebral is antegrade, the left vertebral is retrograde. Percent stenosis 40 to 59 percent bilaterally. INTERPRETATION: Moderate plaque disease at the proximal internal carotid arteries and left retrograde vertebral artery. This is unchanged from the prior study on 07/27/2016 and does not appear to be hemodynamically significant. cc: MD Tulio Ng CRNP
== END 2019-09-19 16:59 | disposition home or self-care (01) | DRG 66 ==
LOC: ED 22:56 → SUATTDRO 09-18 03:49 → EDIPHOLD 09-18 03:49 → 4N 09-18 11:58
PROVIDERS: ATTEND Internal Medicine